=== PATIENT | male | born 1970 | race African-American/Black ===

== ENCOUNTER 2017-05-15 22:27 | Emergency (ER) | payer BC ==
[~2017-05-15] VITALS: Ht 175.3 cm; Wt 89.8 kg
[~2017-05-15 22:27] MED LIST: AMOXICILLIN 50500 M1 PO; APAP/CODEINE ELI5 M1 OR; BACTRIM DS TAB1 EACH PO; CLEOCIN HCL300 MG PO; DOXYCYCLINE 10100 MG PO; IBUPROFEN 800800 MG PO; KENALOG60 GM TP; METFORMIN 500500 MG PO; NOHOMEMEDICATIONS; NORCO 5-325 TA1 EACH PO; PROAIR HFA8.5 GM IH; TESSALON200 MG PO; ULTRAM 50MG TAB50 MG PO
[2017-05-15 22:30] VITALS: BP 147/95
[2017-05-15] MEDS ORDERED: NEURONTIN 300300 M1 PO (22:33)
[2017-05-15] MEDS ORDERED: BACTRIM DS TAB1 EACH PO (22:42)
[2017-05-15] MEDS ORDERED: MOBIC7.5 MG PO (22:49)
== END 2017-05-15 22:50 | disposition home or self-care (01) ==
LOC: ER 22:27
DX: L02.214 Cutaneous abscess of groin (principal); E11.40 Type 2 diabetes mellitus with diabetic neuropathy, unspecified

== ENCOUNTER 2018-09-02 21:12 | Emergency (ER) | payer BC, OTHER ==
[~2018-09-02] VITALS: Ht 175.3 cm; Wt 90.7 kg
[~2018-09-02 21:12] MED LIST changes: +MOBIC7.5 MG PO; +NEURONTIN 300300 M1 PO
[2018-09-02 22:13] LABS: HEMATOCRIT 39.3 % (42.0-52.0); HEMOGLOBIN 13.4 gm/dL (14.0-18.0); MCH 29.7 pg (26.0-34.0); MCV 87.3 fL (80.0-100.0); RBC 4.51 mil/uL (4.50-6.00); RDW 12.7 % (10.5-14.5); WBC 7.3 thou/uL (4.0-11.0)
[2018-09-02 22:19] LABS: CALCIUM 9.2 mg/dL (8.5-10.1); POTASSIUM 3.5 mmol/L (3.5-5.1)
[2018-09-02] MEDS ORDERED: GLUCOPHAGE1000 MG PO (22:26)
[2018-09-02] MEDS ORDERED: AZITHROMYCIN 2250 MG PO (22:26)
[2018-09-02] MEDS ORDERED: MUCINEX DM ER1 EACH PO (22:26)
[2018-09-02] MEDS ORDERED: TESSALON PERLE100 MG PO (22:26)
[2018-09-02] MEDS ORDERED: DOXYCYCLINE 10100 MG PO (22:35)
[2018-09-02 22:40] VITALS: BP 156/98
== END 2018-09-02 22:40 | disposition home or self-care (01) ==
LOC: ER 21:12
PROVIDERS: Student in an Organized Health Care Education/Training Program
DX: J40 Bronchitis, not specified as acute or chronic (principal); E11.40 Type 2 diabetes mellitus with diabetic neuropathy, unspecified